=== PATIENT | male | born 1990 | race Caucasian/White ===

== ENCOUNTER 2020-01-30 11:19 | Emergency (ER) | payer OTHER, SELFPAY ==
--- NOTE | 2020-01-30 11:12 | ECG_ITS ---
APPROVED REPORT Exam: Resting ECG HR:79 bpm ECG Measurements Heart Rate [address] 126 P 78 QRSd 92 QRS 80 QT 352 T 68 QTc 403 <Conclusion> Normal sinus rhythm with sinus arrhythmia Possible Left atrial enlargement Borderline ECG Electronically signed by : Deo Hough, 01/31/2020 19:53:30
[2020-01-30 11:20] VITALS: PULSE 79; RESP 17; TEMP 36.7; O2SAT 100; BMI 19.3
--- NOTE | 2020-01-30 11:28 | XR_ITS ---
PROCEDURE: XR CHEST 2V CLINICAL HISTORY: chest pain, palpitations COMPARISON: No exams were available for comparison FINDINGS: The cardiomediastinal silhouette and pulmonary vascularity are within normal limits. The lungs are clear without infiltrates, suspicious nodules, or pleural effusions. No acute bony abnormalities. IMPRESSION: No acute findings. Dictated by: Nate Barkley MD 01/30/2020 12:08 Nate Barkley MD in [facility] 01/30/2020 12:08
--- NOTE | 2020-01-30 11:43 | PC.NURSE ---
inserted 20g IV in RUE
[2020-01-30 11:49] LABS: Basophils # 0.1 K/mm3 (0-0.2); Basophils % 0.7 % (0.1-2.0); Eosinophils # 0.3 K/mm3 (0.0-0.4); Eosinophils % 4.3 % (0.1-12.0); Hematocrit 45.1 % (42.0-52.0); Hemoglobin 15.5 g/dL (14.1-18.0); Lymphocytes # 1.7 K/mm3 (0.7-4.5); Lymphocytes % 22.6 % (10-50); Mean Corpuscular HGB Conc 34.4 g/dL (31.8-35.4); Mean Corpuscular Hemoglobin 29.2 pg (27.0-31.2); Mean Platelet Volume 7.5 fl (7.4-10.4); Monocytes # 0.5 K/mm3 (0.1-1.0); Monocytes % 6.6 % (1.7-9.3); Neutrophils % 65.8 % (37.0-80.0); Platelet Count 282 K/mm3 (142-424); Red Cell Distribution Width 14.9 % (11.5-17.5); White Blood Count 7.6 K/mm3 (4.8-10.8)
[2020-01-30 11:59] LABS: Barbiturates Screen,Urine Negative ng/ml (<200); Benzodiazepines Screen,Urine Negative ng/ml (<200)
[2020-01-30 12:00] LABS: Cocaine Screen,Urine Negative ng/ml (<300)
[2020-01-30 12:01] VITALS: BP 126/72; PULSE 77; O2SAT 98
[2020-01-30 12:01] LABS: Methadone Screen,Urine Negative ng/ml (<300)
--- NOTE | 2020-01-30 12:01 | [facility].EDGENADL ---
ED Disposition Clinical Impression: Chest pain Qualifiers: Chest pain type: unspecified Qualified Code(s): R07.9 - Chest pain, unspecified Disposition: Home, Self-Care Condition on Discharge: Good Instructions: DI for Atypical Chest Pain Referrals: Viri Villalpando MD [Primary Care Provider] - Time of Disposition: 13:36 - Critical Care Critical Care Time: No Attestation: On 01/30/20, the high probability of a clinically significant, sudden or life threatening deterioration of the following system(s) required my full and direct attention, intervention and personal management. The time I documented below is in addition to time spent performing reported procedures but includes the following listed in this critical care notation. Medical Decision Making - Medical Records Medical records reviewed: Yes: I reviewed the patient's medical records. MR Comment: 30-year-old male with a history of anxiety and prior IV drug abuse presents the emergency department with chest pain. He arrives to the ED hemodynamically stable, with reassuring vital signs, and looks well on exam. ACS is unlikely, does not fit his clinical history, however is considered. Heart score is 2. EKG does not have any concerning features are initial review. Will get labs and reassess. On reassessment, patient remains well. No concerning findings on x-ray or on review of his labs. He is feeling better. Advised that he follow-up with his PCP in the next 2 to 3 days. He was given strict return precautions and discharge instructions and verbalized understanding and agreement with plan. Safe to discharge. - Kamari Inquiry Pt receiving controlled substance: No Vital Signs: 01/30/20 11:20 01/30/20 12:01 01/30/20 13:13 Temperature 98.1 F Temperature Source Oral Pulse Rate Pulse Rate [Right Radial] 79 77 67 Respiratory Rate 17 Blood Pressure Blood Pressure [Right Arm] 126/72 114/61 Blood Pressure Mean [Right Arm] 90 78 Blood Pressure Source [Right Arm] Automatic Cuff Automatic Cuff Blood Pressure Position [Right Arm] Sitting Sitting 02 Sat by Pulse Oximetry 100 98 97 Oxygen Delivery Method Room Air Room Air Room Air 01/30/20 13:49 Temperature 98.7 F Temperature Source Oral Pulse Rate 89 Pulse Rate [Right Radial] Respiratory Rate 17 Blood Pressure 115/62 Blood Pressure [Right Arm] Blood Pressure Mean [Right Arm] Blood Pressure Source [Right Arm] Blood Pressure Position [Right Arm] 02 Sat by Pulse Oximetry Oxygen Delivery Method Room Air - Lab Data Lab Results 01/30/20 11:34: Urine Opiates Screen Negative, Urine Methadone Screen Negative, Ur Barbituates Screen Negative, Ur Phencyclidine Scrn Negative, Ur Amphetamines Screen Negative, U Benzodiazepines Scrn Negative, Urine Cocaine Screen Negative, U Marijuana (THC) Screen Negative 01/30/20 11:40: WBC 7.6, RBC 5.30, Hgb 15.5, Hct 45.1, MCV 85.0, MCH 29.2, MCHC 34.4, RDW 14.9, Plt Count 282, MPV 7.5, Neut % (Auto) 65.8, Lymph % (Auto) 22.6, Sawyer % (Auto) 6.6, Eos % (Auto) 4.3, Baso % (Auto) 0.7, Neut # (Auto) 5.0, Lymph # (Auto) 1.7, Sawyer # (Auto) 0.5, Eos # (Auto) 0.3, Baso # (Auto) 0.1 01/30/20 12:05: Sodium 138, Potassium 4.1, Chloride 106, Carbon Dioxide 26, Anion Gap 10.1, BUN 12, Creatinine 0.60 L, Estimated Creat Clear 153, Estimated GFR 156, Est GFR ( Amer) 189, Glucose 111 H, Calcium 9.4, Total Bilirubin 0.4, AST 48, ALT 70, Alkaline Phosphatase 83, Troponin I < 0.01, Total Protein 7.7, Albumin 4.0, Globulin 3.7 H, Albumin/Globulin Ratio 1.1, TSH 1.48 01/30/20 12:05: Free T4 1.88 01/30/20 13:30: Troponin I < 0.01 Result diagrams: 01/30/20 11:40 01/30/20 12:05 Orders (Tests/Meds): ED MEDICATIONS Discontinued Medications Generic Name Dose Route Start Last Admin Trade Name Sara PRN Reason Stop Dose Admin Aspirin 324 mg 01/30/20 11:29 01/30/20 11:31 Aspirin 81mg Chewable Tablet PO 01/30/20 11:30 324 mg ONCE ONE Administration ORDERS Ca
[2020-01-30 12:02] LABS: Cannabinoid Screen,Urine Negative ng/ml (<50); Opiate Screen,Urine Negative ng/ml (<300)
[2020-01-30 12:03] LABS: Phencyclidine Screen,Urine Negative ng/ml (<25)
[2020-01-30 12:05] LABS: Amphetamine/Metha Screen,Urine Negative ng/ml (<1000)
--- NOTE | 2020-01-30 12:09 | PC.NURSE ---
george 2nd set of labs secondary to 1st set clotting
[2020-01-30 12:18] LABS: Chloride 106 mmol/L (98-107); Potassium 4.1 mmoL/L (3.5-5.1); Sodium 138 mmol/L (136-145)
[2020-01-30 12:21] LABS: Alanine Aminotransferase 70 U/L (12-78); Albumin/Globulin Ratio 1.1 (1.1-1.8); Alkaline Phosphatase 83 U/L (38-126); Anion Gap 10.1 mEq/L (5-15); Aspartate Amino Transferase 48 U/L (17-59); Bilirubin,Total 0.4 mg/dl (0.2-1.3); Blood Urea Nitrogen 12 mg/dl (9-20); Carbon Dioxide 26 mmol/L (22.0-30.0); Creatinine Clearance Estimated 153 mL/min (50-200); Estimated Glomerular Filt Rate 156 ml/min (>60); GFR (African American) 189 ML/MIN (>60); Globulin 3.7 g/dL (1.3-3.2); Total Protein,Serum 7.7 g/dl (6.3-8.2)
[2020-01-30 12:22] LABS: Calcium 9.4 mg/dl (8.4-10.2); Glucose 111 mg/dl (74-100)
[2020-01-30 12:34] LABS: Troponin I < 0.01 ng/ml (0.00-0.034)
[2020-01-30 12:42] LABS: Free T4 (Free Thyroxine) 1.88 ng/dl (0.78-2.19)
[2020-01-30 12:52] LABS: Thyroid Stimulating Hormone 1.48 uIU/mL (0.465-4.68)
[2020-01-30 13:13] VITALS: BP 114/61; PULSE 67; O2SAT 97
--- NOTE | 2020-01-30 13:31 | PC.NURSE ---
2nd troponin (green top) george from SUE
[2020-01-30 13:49] VITALS: BP 115/62; PULSE 89; RESP 17; TEMP 37.1; O2SAT 99
[2020-01-30 14:05] LABS: Troponin I < 0.01 ng/ml (0.00-0.034)
== END 2020-01-30 13:50 | disposition home or self-care (01) ==
PROVIDERS: Emergency Provider Emergency Medicine; PCP Nurse Practitioner
DX: R07.9 Chest pain, unspecified (principal); F41.9 Anxiety disorder, unspecified; F17.210 Nicotine dependence, cigarettes, uncomplicated
CPT/HCPCS: 71046; 80053; 80305; 84439; 84443; 84484; 85025; 93005; 99284